=== PATIENT | female | born 1940 | race Two or more races ===

== ENCOUNTER 2025-08-06 10:58 | Inpatient (IN) | payer OTHER ==
[~2025-08-06] VITALS: Ht 162.6 cm; Wt 58.3 kg
[2025-08-06 03:00] VITALS: BP 146/59; TEMP 97.3; O2SAT 92
[2025-08-06 11:24] LABS: PLATELET COUNT (AUTO) 207 K/uL (150-450); RED BLOOD CELL COUNT(AUTO) 2.47 MIL/uL (4.0-5.2); RED CELL DISTRIBUTION WIDTH 14.8 % (11.5-15.0); WHITE BLOOD COUNT (AUTO) 17.7 K/uL (4.3-11.0)
[2025-08-06] MEDS: IV NS 0.9% 1,000 ML BAG IV ONE (11:25)
[2025-08-06 11:35] LABS: CALCIUM, SERUM 8.1 mg/dL (8.5-10.1); CREATININE 2.8 mg/dL (0.6-1.3); SODIUM SERUM 135 mmol/L (136-145); UREA NITROGEN, BLOOD 63 mg/dL (7-18)
[2025-08-06 11:39] LABS: INR 0.95 (0.91-1.10)
[2025-08-06 11:42] LABS: LACTIC ACID 0.7 mmol/L (0.4-2.0)
[2025-08-06 11:49] LABS: ASPARTATE AMINOTRANSFERASE 22 U/L (15-37); TOTAL PROTEIN, SERUM 5.4 g/dL (6.4-8.2)
[2025-08-06] MEDS ORDERED: ATOR40TA PO (12:01)
[2025-08-06] MEDS ORDERED: AMLO-213 PO (12:01)
[2025-08-06] MEDS ORDERED: HYDR-4077 PO (12:01)
[2025-08-06] MEDS ORDERED: CITA10TA9 PO (12:01)
[2025-08-06] MEDS ORDERED: DULA0.75 SQ (12:01)
[2025-08-06] MEDS ORDERED: DONE10TA44 PO (12:01)
[2025-08-06] MEDS ORDERED: ISOS10TA2 PO (12:01)
[2025-08-06] MEDS ORDERED: CLOP75TA15 PO (12:01)
[2025-08-06] MEDS ORDERED: DOSING PER PHARMACY-VANCOMYCIN IV XX PRN (13:00)
[2025-08-06] MEDS ORDERED: ALBUTEROL FS 2.5 MG/3 ML VIAL.NEB NEB PRN (13:00)
[2025-08-06] MEDS ORDERED: DOSING PER PHARMACY-ZOSYN IV 1 EA EA XX PRN (13:00)
[2025-08-06] MEDS ORDERED: MAGNESIUM HYDROXIDE 30 ML UDC PO PRN (13:00)
[2025-08-06] MEDS ORDERED: ACETAMINOPHEN 325 MG TABLET PO PRN (13:00)
[2025-08-06] MEDS ORDERED: ONDANSETRON HCL/PF 4 MG/2 ML VIAL IVP PRN ×2 (13:00→14:30)
[2025-08-06] MEDS ORDERED: MAG HYDROX/AL HYDROX/SIMETH 30 ML UDC PO PRN (13:00)
[2025-08-06] MEDS: PIPERACILLIN /TAZOBACTAM 3.375 G in IV D5W 50 ML IV ONE (13:05)
[2025-08-06] MEDS ORDERED: DULAGLUTIDE SQ SCH (13:30)
[2025-08-06] MEDS: VANCOMYCIN 1 GM in IV D5W 250 ML IV ONE (13:40)
[2025-08-06] MEDS: IV NS 0.9% 1,000 ML IV PRN (15:53)
[2025-08-06 16:00] VITALS: BP 146/59; TEMP 97.3; O2SAT 92
[2025-08-06] MEDS: ENOXAPARIN SODIUM 30 MG/0.3 ML DISP.SYRIN SQ SCH (16:06)
[2025-08-06 16:58] VITALS: BP 146/59; TEMP 97.3; O2SAT 97
[2025-08-06] MEDS ORDERED: ISOSORBIDE DINITRATE (10MG) 10 MG TABLET PO SCH (17:00)
[2025-08-06] MEDS: VANCOMYCIN HCL 1.25 GM in IV D5W 250 ML IV ONE (17:03)
[2025-08-06] MEDS: PIPERACILLIN /TAZOBACTAM 2.25 G in IV D5W 50 ML IV SCH (18:24)
[2025-08-06] MEDS: ISOSORBIDE DINITRATE (10MG) 10 MG TABLET PO SCH (19:10)
[2025-08-06 20:00] VITALS: BP 142/70; TEMP 97.3; O2SAT 94
[2025-08-06] MEDS: ATORVASTATIN 40 MG TABLET PO SCH (22:00)
[2025-08-06] MEDS: DONEPEZIL 5 MG TABLET PO SCH (22:00)
[2025-08-07 06:54] LABS: PLATELET COUNT (AUTO) 185 K/uL (150-450); RED BLOOD CELL COUNT(AUTO) 2.29 MIL/uL (4.0-5.2); RED CELL DISTRIBUTION WIDTH 14.9 % (11.5-15.0); WHITE BLOOD COUNT (AUTO) 13.9 K/uL (4.3-11.0)
[2025-08-07 07:14] LABS: ASPARTATE AMINOTRANSFERASE 16.0 U/L (15-37); CALCIUM, SERUM 8.0 mg/dL (8.5-10.1); CREATININE 2.7 mg/dL (0.6-1.3); PHOSPHORUS 4.0 mg/dL (2.5-4.9); SODIUM SERUM 133.0 mmol/L (136-145); TOTAL PROTEIN, SERUM 5.2 g/dL (6.4-8.2); UREA NITROGEN, BLOOD 62.0 mg/dL (7-18)
[2025-08-07 07:30] VITALS: BP 147/67; TEMP 97.3; O2SAT 94
[2025-08-07] MEDS: PANTOPRAZOLE 40 MG TABLET.DR PO SCH (07:30)
[2025-08-07] MEDS: CITALOPRAM HYDROBROMIDE 10 MG TABLET PO SCH (08:04)
[2025-08-07] MEDS: AMLODIPINE BESYLATE 10 MG TABLET PO SCH (08:05)
[2025-08-07] MEDS: CLOPIDOGREL BISULFATE 75 MG TABLET PO SCH (08:06)
[2025-08-07] MEDS: THERAHONEY GEL 1.5 OZ TUBE TP SCH (12:07)
[2025-08-07] MEDS: PIPERACILLIN /TAZOBACTAM 2.25 G in IV D5W 50 ML IV SCH (12:07)
[2025-08-07 16:04] VITALS: BP 160/59; TEMP 97.3; O2SAT 96
[2025-08-07] MEDS: hydrALAZINE HCL IV 20 MG VIAL IV PRN (17:52)
[2025-08-07 18:55] VITALS: BP 158/60
[2025-08-07] MEDS: AZITHROMYCIN 500 MG in IV D5W 250 ML IV SCH (20:35)
[2025-08-07 20:57] VITALS: BP 146/76; TEMP 98; O2SAT 96
[2025-08-08 05:57] LABS: PLATELET COUNT (AUTO) 168 K/uL (150-450); RED BLOOD CELL COUNT(AUTO) 2.41 MIL/uL (4.0-5.2); RED CELL DISTRIBUTION WIDTH 14.8 % (11.5-15.0); WHITE BLOOD COUNT (AUTO) 7.6 K/uL (4.3-11.0)
[2025-08-08 06:06] LABS: ASPARTATE AMINOTRANSFERASE 13.0 U/L (15-37); CALCIUM, SERUM 8.0 mg/dL (8.5-10.1); CREATININE 2.5 mg/dL (0.6-1.3); PHOSPHORUS 4.1 mg/dL (2.5-4.9); SODIUM SERUM 136.0 mmol/L (136-145); TOTAL PROTEIN, SERUM 5.1 g/dL (6.4-8.2); UREA NITROGEN, BLOOD 57.0 mg/dL (7-18)
[2025-08-08 06:09] LABS: CREATINE KINASE, TOTAL 47.0 U/L (26-192)
[2025-08-08 08:00] VITALS: BP 149/91
[2025-08-08 08:24] VITALS: BP 149/91; TEMP 97.4; O2SAT 97
[2025-08-08 09:38] VITALS: BP 149/91; TEMP 97.4; O2SAT 97
[2025-08-08] MEDS ORDERED: BARIUM SULFATE 98% 135 ML SUSP.RECON PO ONE (13:29)
[2025-08-08] MEDS ORDERED: VANCOMYCIN 750 MG in IV D5W 250 ML IV SCH (15:00)
[2025-08-08 20:00] VITALS: BP 140/59; TEMP 97.5; O2SAT 97
[2025-08-09 05:08] LABS: PTH, INTACT 52 pg/mL (15-65)
[2025-08-09 06:27] LABS: PLATELET COUNT (AUTO) 167 K/uL (150-450); RED BLOOD CELL COUNT(AUTO) 2.14 MIL/uL (4.0-5.2); RED CELL DISTRIBUTION WIDTH 14.9 % (11.5-15.0); WHITE BLOOD COUNT (AUTO) 7.2 K/uL (4.3-11.0)
[2025-08-09 06:34] LABS: CALCIUM, SERUM 8.0 mg/dL (8.5-10.1); CREATININE 2.6 mg/dL (0.6-1.3); PHOSPHORUS 4.3 mg/dL (2.5-4.9); SODIUM SERUM 139.0 mmol/L (136-145); UREA NITROGEN, BLOOD 56.0 mg/dL (7-18)
[2025-08-09 07:00] VITALS: BP 185/51; TEMP 99.5; O2SAT 96
[2025-08-09 16:00] VITALS: BP_SYST 135; BP_SYST 141; BP_DIAS 58; BP_DIAS 71; TEMP 97.2; TEMP 97.7; O2SAT 98
[2025-08-09 20:00] VITALS: BP 113/60; TEMP 97.7; O2SAT 98
[2025-08-09] MEDS: AZITHROMYCIN 250 MG TABLET PO SCH (21:53)
[2025-08-10 07:49] LABS: CALCIUM, SERUM 8.0 mg/dL (8.5-10.1); CREATININE 2.5 mg/dL (0.6-1.3); SODIUM SERUM 137.0 mmol/L (136-145); UREA NITROGEN, BLOOD 57.0 mg/dL (7-18)
[2025-08-10 08:00] VITALS: BP 179/71; TEMP 97.3; O2SAT 90; O2SAT 94
[2025-08-10] MEDS ORDERED: Z GUARD REMEDY 4 OZ OINT TP PRN (10:00)
[2025-08-10 10:42] LABS: PLATELET COUNT (AUTO) 161 K/uL (150-450); RED CELL DISTRIBUTION WIDTH 15.5 % (11.5-15.0); WHITE BLOOD COUNT (AUTO) 6.6 K/uL (4.3-11.0)
[2025-08-10 10:45] LABS: RED BLOOD CELL COUNT(AUTO) 1.92 MIL/uL (4.0-5.2)
[2025-08-10 11:31] LABS: EOSINOPHILS % (MANUAL) 4 % (0-4); LYMPHOCYTES % (MANUAL) 14 % (16-48); MONOCYTES % (MANUAL) 3 % (0-11.0); NEUTROPHILS % (MANUAL) 79 (42-76); PLATELET ESTIMATE ADEQUATE
[2025-08-10] MEDS: Z GUARD REMEDY 4 OZ OINT TP SCH (11:37)
[2025-08-10 12:37] LABS: IRON, SERUM 63 ug/dl (50-175)
[2025-08-10 13:21] VITALS: BP 161/72; TEMP 97.5; O2SAT 95
[2025-08-10 16:00] VITALS: BP 148/60; TEMP 97.7; O2SAT 94
[2025-08-10 17:24] LABS: APPEARANCE,URINE CLEAR (CLEAR); BLOOD, URINE 2+ Ery/uL (NEGATIVE); LEUKOCYTE ESTERASE ,URINE 3+ (NEGATIVE); NITRITE, URINE NEGATIVE (NEGATIVE); UGLUCOSE 1+ mg/dL (NEGATIVE)
[2025-08-10 17:29] LABS: CREATININE, URINE 37.9 MG/DL (30.0-125.0); URINE SODIUM, RANDOM 61.0 mmol/l (40-220); URINE TOTAL PROTEIN 289.2 mg/dL (0-11.9)
[2025-08-10 17:52] LABS: ADD URINE CULTURE YES; SQUAMOUS EPITHELIAL CELL,UR Moderate /HPF (None Seen)
[2025-08-10 18:02] LABS: EOSINOPHIL,URINE None Seen
[2025-08-10 20:00] VITALS: BP 139/68; TEMP 97.5; O2SAT 93
[2025-08-10] MEDS: AMOXICILLIN TRIHYDRATE 250 MG CAPSULE PO SCH (21:53)
[2025-08-10] MEDS: PANTOPRAZOLE 40 MG VIAL IV SCH (22:02)
[2025-08-11 07:14] LABS: CALCIUM, SERUM 7.8 mg/dL (8.5-10.1); CREATININE 2.6 mg/dL (0.6-1.3); SODIUM SERUM 138.0 mmol/L (136-145); UREA NITROGEN, BLOOD 58.0 mg/dL (7-18)
[2025-08-11 08:00] VITALS: BP 142/68; TEMP 97.7; O2SAT 96
[2025-08-11 08:25] LABS: PLATELET COUNT (AUTO) 159 K/uL (150-450); RED CELL DISTRIBUTION WIDTH 14.9 % (11.5-15.0); WHITE BLOOD COUNT (AUTO) 5.4 K/uL (4.3-11.0)
[2025-08-11 08:59] LABS: RED BLOOD CELL COUNT(AUTO) 1.91 MIL/uL (4.0-5.2)
[2025-08-11 11:02] VITALS: BP 142/68; TEMP 97.7; O2SAT 96
[2025-08-11 15:34] LABS: EOSINOPHILS % (MANUAL) 2 % (0-4); LYMPHOCYTES % (MANUAL) 14 % (16-48); MONOCYTES % (MANUAL) 3 % (0-11.0); NEUTROPHILS % (MANUAL) 81 (42-76); PLATELET ESTIMATE ADEQUATE
[2025-08-11 16:00] VITALS: BP 103/48; TEMP 98.1; O2SAT 93
[2025-08-11 17:27] LABS: OCCULT BLOOD STOOL POSITIVE (NEGATIVE)
[2025-08-11 20:00] VITALS: BP 111/51; TEMP 97.6; O2SAT 92
[2025-08-12] MEDS: BLOOD SUGAR DIAGNOSTIC 1 EACH STRIP IN SCH (07:01)
[2025-08-12] MEDS: INSULIN REGULAR, HUMAN 100 UNIT/ML 3 ML VIAL SQ PRN (07:06)
[2025-08-12 08:00] VITALS: BP 190/69; TEMP 98.4; O2SAT 96
[2025-08-12 08:00] LABS: CALCIUM, SERUM 8.0 mg/dL (8.5-10.1); CREATININE 2.6 mg/dL (0.6-1.3); SODIUM SERUM 139.0 mmol/L (136-145); UREA NITROGEN, BLOOD 60.0 mg/dL (7-18)
[2025-08-12 12:38] LABS: PLATELET COUNT (AUTO) 191 K/uL (150-450); RED BLOOD CELL COUNT(AUTO) 2.42 MIL/uL (4.0-5.2); RED CELL DISTRIBUTION WIDTH 14.8 % (11.5-15.0); WHITE BLOOD COUNT (AUTO) 9.1 K/uL (4.3-11.0)
[2025-08-12] MEDS: IV NS 0.9% 1,000 ML IV SCH (15:30)
[2025-08-12 16:00] VITALS: BP 137/68; TEMP 97.7; O2SAT 95
[2025-08-12 20:04] VITALS: BP 121/66; TEMP 94.9; O2SAT 94
[2025-08-13] VITALS (9 sets, daily range): BP systolic 147–162; BP diastolic 55–66; TEMP 94–97.7; O2SAT 87–96
[2025-08-13] MEDS: DEXTROSE 50%-WATER 50 ML DISP.SYRIN IV PRN (06:05)
[2025-08-13 07:19] LABS: PLATELET COUNT (AUTO) 183 K/uL (150-450); RED BLOOD CELL COUNT(AUTO) 2.14 MIL/uL (4.0-5.2); RED CELL DISTRIBUTION WIDTH 15.3 % (11.5-15.0); WHITE BLOOD COUNT (AUTO) 10.1 K/uL (4.3-11.0)
[2025-08-13] MEDS ORDERED: AMOX250C PO (12:43)
[2025-08-13] MEDS ORDERED: DOCU100C36 PO (12:43)
[2025-08-13] MEDS ORDERED: PANT40TA2 PO ×2 (12:43)
[2025-08-13] MEDS: IV NS 0.9% 1,000 ML IV PRN (15:44)
[2025-08-13] MEDS ORDERED: DOSING PER PHARMACY-VANCOMYCIN IV XX PRN (19:00)
[2025-08-13] MEDS ORDERED: DOSING PER PHARMACY-CEFEPIME IVPB XX PRN (19:00)
[2025-08-13 21:18] LABS: CALCIUM, SERUM 8.0 mg/dL (8.5-10.1); CREATININE 2.7 mg/dL (0.6-1.3); SODIUM SERUM 140 mmol/L (136-145); UREA NITROGEN, BLOOD 64 mg/dL (7-18)
[2025-08-13 21:30] LABS: PLATELET COUNT (AUTO) 158 K/uL (150-450); RED BLOOD CELL COUNT(AUTO) 2.05 MIL/uL (4.0-5.2); RED CELL DISTRIBUTION WIDTH 15.4 % (11.5-15.0); WHITE BLOOD COUNT (AUTO) 12.3 K/uL (4.3-11.0)
[2025-08-13] MEDS: CEFEPIME 2 GM in IV D5W 100 ML IV SCH (21:30)
[2025-08-13 21:31] LABS: ASPARTATE AMINOTRANSFERASE 21 U/L (15-37); TOTAL PROTEIN, SERUM 5.5 g/dL (6.4-8.2)
[2025-08-13] MEDS: VANCOMYCIN HCL 1.25 GM in IV D5W 250 ML IV ONE (21:41)
[2025-08-13 23:06] LABS: NT-PRO BNP > 25000 pg/mL (0-125)
[2025-08-14] VITALS (14 sets, daily range): BP systolic 143; BP diastolic 67; TEMP 95.7–97.7; O2SAT 91–96
[2025-08-14 00:38] LABS: EOSINOPHILS % (MANUAL) 2 % (0-4); LYMPHOCYTES % (MANUAL) 6 % (16-48); MONOCYTES % (MANUAL) 3 % (0-11.0); NEUTROPHILS % (MANUAL) 89 (42-76)
[2025-08-14 00:39] LABS: PLATELET ESTIMATE ADEQUATE
[2025-08-14 07:19] LABS: CALCIUM, SERUM 8.2 mg/dL (8.5-10.1); CREATININE 2.6 mg/dL (0.6-1.3); SODIUM SERUM 138.0 mmol/L (136-145); UREA NITROGEN, BLOOD 64.0 mg/dL (7-18)
[2025-08-14] MEDS ORDERED: ALBUTEROL HALF STRENGTH 1.25 MG/3 ML VIAL.NEB NEB PRN (13:00)
[2025-08-14] MEDS ORDERED: IPRATROPIUM NEB FS 0.5 MG/2.5 ML AMPUL.NEB NEB PRN (13:00)
[2025-08-14] MEDS: IPRATROPIUM NEB FS 0.5 MG/2.5 ML AMPUL.NEB NEB SCH (13:24)
[2025-08-14] MEDS: ACETYLCYSTEINE 10% SOLN 400 MG/4 ML VIAL NEB SCH (13:24)
[2025-08-14] MEDS: ALBUTEROL HALF STRENGTH 1.25 MG/3 ML VIAL.NEB NEB SCH (13:24)
[2025-08-15] VITALS (10 sets, daily range): BP systolic 134–158; BP diastolic 58–73; TEMP 97.3–98.8; O2SAT 85–100
[2025-08-15 08:02] LABS: PLATELET COUNT (AUTO) 165 K/uL (150-450); RED CELL DISTRIBUTION WIDTH 15.7 % (11.5-15.0); WHITE BLOOD COUNT (AUTO) 16.0 K/uL (4.3-11.0)
[2025-08-15 08:08] LABS: RED BLOOD CELL COUNT(AUTO) 1.89 MIL/uL (4.0-5.2)
[2025-08-15 08:32] LABS: CALCIUM, SERUM 8.5 mg/dL (8.5-10.1); CREATININE 3.0 mg/dL (0.6-1.3); PHOSPHORUS 6.2 mg/dL (2.5-4.9); SODIUM SERUM 137.0 mmol/L (136-145); UREA NITROGEN, BLOOD 73.0 mg/dL (7-18)
[2025-08-15 11:10] LABS: EOSINOPHILS % (MANUAL) 1 % (0-4); MONOCYTES % (MANUAL) 1 % (0-11.0); NEUTROPHILS % (MANUAL) 98 (42-76); PLATELET ESTIMATE ADEQUATE
[2025-08-15 14:24] LABS: ABG BASE EXCESS -8.1 mmol/L (-2.0-3.0); ABG OXYGEN SATURATION 93.3 % (94.0-98.0); ABG PCO2 29.9 mmHg (32.0-45.0); ABG PH 7.362 (7.350-7.450); ABG PO2 74.6 mmHg (83.0-108.0); ABG TOTAL HEMOGLOBIN 6.4 G/dL (12.0-16.0); FLOW, BLOOD GAS 15.00 L/min (0.00-30.00); FRACTIONATED INSPIRED OXYGEN 100.0 %; SITE, ABG RIGHT RADIAL
[2025-08-15] MEDS ORDERED: VANCOMYCIN 1 GM in IV D5W 250 ML IV SCH (22:00)
[2025-08-24 15:10] LABS: *SPE A/G RATIO 0.8 (0.7-1.7); *SPE ALBUMIN 2.0 g/dL (2.9-4.4); *SPE ALPHA-1-GLOBULIN 0.3 g/dL (0.0-0.4); *SPE ALPHA-2-GLOBULIN 0.7 g/dL (0.4-1.0); *SPE BETA GLOBULIN 0.6 g/dL (0.7-1.3); *SPE GLOBULIN, TOTAL 2.5 g/dL (2.2-3.9); *SPE M-SPIKE 0.1 g/dL (Not Observed); *SPE PROTEIN TOTAL 4.5 g/dL (6.0-8.5); *SPEGAMMA GLOBULIN 0.9 g/dL (0.4-1.8)
== END 2025-08-15 19:20 | disposition hospice, inpatient (51) | DRG 871 ==
LOC: ER 11:01 → MED 13:59
PROVIDERS: ADMIT Nurse Practitioner Family; ATTEND Nurse Practitioner Acute Care
DX: A41.9 Sepsis, unspecified organism (principal); G93.41 Metabolic encephalopathy; J69.0 Pneumonitis due to inhalation of food and vomit; N17.0 Acute kidney failure with tubular necrosis; J96.01 Acute respiratory failure with hypoxia; J15.69 Pneumonia due to other Gram-negative bacteria; K92.2 Gastrointestinal hemorrhage, unspecified; N39.0 Urinary tract infection, site not specified; E44.1 Mild protein-calorie malnutrition; E11.22 Type 2 diabetes mellitus with diabetic chronic kidney disease; I12.9 Hypertensive chronic kidney disease with stage 1 through stage 4 chronic kidney disease, or unspecified chronic kidney disease; F01.50 Vascular dementia, unspecified severity, without behavioral disturbance, psychotic disturbance, mood disturbance, and anxiety; N18.9 Chronic kidney disease, unspecified; D63.1 Anemia in chronic kidney disease; D68.59 Other primary thrombophilia; E87.1 Hypo-osmolality and hyponatremia; Z66 Do not resuscitate; E88.09 Other disorders of plasma-protein metabolism, not elsewhere classified; Z86.73 Personal history of transient ischemic attack (TIA), and cerebral infarction without residual deficits; E78.5 Hyperlipidemia, unspecified; R53.1 Weakness; L89.156 Pressure-induced deep tissue damage of sacral region; E83.89 Other disorders of mineral metabolism; K64.9 Unspecified hemorrhoids; R19.5 Other fecal abnormalities; Z68.22 Body mass index [BMI] 22.0-22.9, adult; Z53.1 Procedure and treatment not carried out because of patient's decision for reasons of belief and group pressure; E87.70 Fluid overload, unspecified; Z79.02 Long term (current) use of antithrombotics/antiplatelets; Z79.85 Long-term (current) use of injectable non-insulin antidiabetic drugs
CPT/HCPCS: 36415; 36600; 70450-TC; 70551-TC; 71045-TC; 74018; 74230-TC; 76770-TC; 80048-TC; 80053-TC; 80076-TC; 81001; 82272-TC; 82550-TC; 82570-TC; 82607-TC; 82728-TC; 82803-TC; 82962-TC; 83540-TC; 83605-TC; 83735-TC; 83880; 83970; 84100-TC; 84155; 84165; 84300-TC; 84443-TC; 84484-TC; 85025-TC; 85027-TC; 85730-TC; 86850; 86850-TC; 86870; 86880; 86900; 86901; 86905; 86906; 87040-TC; 87081-TC; 87086-TC; 92526; 92611; 94667-TC; 94760-TC; 94799-TC; 97110-TC; 97116-TC; 97530-TC; 97535-TC; A6213; A6253; G0378; J0360; J0456; J0692; J1650; J1815; J2470; J2543; J3373; J7030; J7060

== ENCOUNTER 2025-08-15 19:26 | Inpatient (IN) | payer OTHER ==
[~2025-08-15] VITALS: Ht 152.4 cm; Wt 61.7 kg
[~2025-08-15 19:26] MED LIST: AMLO-213 PO; AMOX250C PO; ATOR40TA PO; CITA10TA9 PO; DOCU100C36 PO; DONE10TA44 PO; DULA0.75 SQ; HYDR-4077 PO; ISOS10TA2 PO; PANT40TA2 PO
[2025-08-15 20:00] VITALS: BP 167/65; TEMP 97.9; O2SAT 96
[2025-08-15] MEDS ORDERED: Z GUARD REMEDY 4 OZ OINT TP PRN (20:00)
[2025-08-15] MEDS ORDERED: ACETAMINOPHEN 650 MG/SUPP.RECT RC PRN (20:00)
[2025-08-15] MEDS ORDERED: ONDANSETRON HCL/PF 4 MG/2 ML VIAL IVP PRN (20:00)
[2025-08-15] MEDS ORDERED: LORAZEPAM INJ 2 MG/ML VIAL IV PRN (20:00)
[2025-08-15] MEDS: SCOPOLAMINE PATCH 1 MG/72HR TD SCH (21:26)
[2025-08-15] MEDS ORDERED: KEY,NONCONTROL,TO KEEP IN PYXI 1 EA MC ONE (23:00)
[2025-08-15] MEDS: MORPHINE SULFATE PF DRIP 100 MG in IV D5W 96 ML IV PRN (23:13)
[2025-08-16] MEDS ORDERED: KEY,NONCONTROL,TO KEEP IN PYXI 1 EA MC ONE (02:35)
== END 2025-08-16 01:57 | DRG 951 ==
LOC: HOSPICE 19:26
PROVIDERS: ADMIT Nurse Practitioner Acute Care; ATTEND Nurse Practitioner Acute Care
DX: Z51.5 Encounter for palliative care (principal); J69.0 Pneumonitis due to inhalation of food and vomit; J96.01 Acute respiratory failure with hypoxia; G93.41 Metabolic encephalopathy; D68.59 Other primary thrombophilia; N17.9 Acute kidney failure, unspecified; E44.0 Moderate protein-calorie malnutrition; K92.2 Gastrointestinal hemorrhage, unspecified; N18.9 Chronic kidney disease, unspecified; E78.5 Hyperlipidemia, unspecified; R62.7 Adult failure to thrive; Z86.73 Personal history of transient ischemic attack (TIA), and cerebral infarction without residual deficits; Z68.26 Body mass index [BMI] 26.0-26.9, adult; D50.0 Iron deficiency anemia secondary to blood loss (chronic); F01.50 Vascular dementia, unspecified severity, without behavioral disturbance, psychotic disturbance, mood disturbance, and anxiety; Z74.09 Other reduced mobility; I12.9 Hypertensive chronic kidney disease with stage 1 through stage 4 chronic kidney disease, or unspecified chronic kidney disease; E11.22 Type 2 diabetes mellitus with diabetic chronic kidney disease; I46.9 Cardiac arrest, cause unspecified
CPT/HCPCS: G0378; J2274; J7060